=== PATIENT | male | born 1980 | race Caucasian/White ===

== ENCOUNTER 2017-07-31 14:15 | Emergency (ER) | payer OTHER ==
[~2017-07-31] VITALS: Ht 188 cm; Wt 104.5 kg
[2017-07-31] MEDS ORDERED: cloNIDine 0.1 mg tablet PO STA ×2 (14:26→15:30)
[2017-07-31] MEDS ORDERED: oxymetazoline 15 ML nasal spray NS ONE (14:30)
[2017-07-31] MEDS ORDERED: normal saline 1000ML IV soln IVB ONE (14:30)
[2017-07-31] MEDS ORDERED: amLODIPine 5mg tablet PO ONE (15:30)
[2017-07-31 15:48] LABS: BASOPHILS % (AUTO) 0.4 % (0-1); EOSINOPHILS # (AUTO) 0.1 X10'3 (0-0.9); EOSINOPHILS % (AUTO) 1.7 % (0-6); HEMATOCRIT 32.9 % (42.0-52.0); HEMOGLOBIN 11.4 g/dl (14.0-17.9); LYMPHOCYTES % (AUTO) 13.8 % (21-51); MEAN CORPUSCULAR HEMOGLOBIN 29.5 PG (27.0-31.0); MEAN CORPUSCULAR HGB CONC 34.5 % (33.0-36.5); MEAN CORPUSCULAR VOLUME 85.6 FL (78-98); MONOCYTES # (AUTO) 0.6 X10'3 (0-0.9); MONOCYTES % (AUTO) 8.3 % (2-12); NEUTROPHILS # (AUTO) 5.5 X10'3 (1.8-7.7); NEUTROPHILS % (AUTO) 75.8 % (42-75); PLATELET COUNT 272 X10'3 (140-440); RED BLOOD COUNT 3.85 X10'6 (4.70-6.10); RED CELL DISTRIBUTION WIDTH 15.9 % (11.5-14.5); WHITE BLOOD COUNT 7.2 X10'3 (4.5-11.0)
[2017-07-31] MEDS ORDERED: SULF1TAB49 PO (15:53)
[2017-07-31] MEDS ORDERED: AMLO10TA PO (15:54)
[2017-07-31] MEDS ORDERED: LIDOcaine 2% 10ml TOPICAL JELLY (Urojet) MM ONE (16:55)
[2017-07-31 17:18] VITALS: BP 188/119
== END 2017-07-31 17:24 | disposition left against medical advice (07) ==
LOC: ER 14:15
DX: R04.0 Epistaxis (principal); I10 Essential (primary) hypertension; L03.114 Cellulitis of left upper limb; F15.90 Other stimulant use, unspecified, uncomplicated; F11.10 Opioid abuse, uncomplicated; Z60.2 Problems related to living alone; Z59.0 Homelessness; Z56.0 Unemployment, unspecified; Z79.899 Other long term (current) drug therapy
CPT/HCPCS: 30901; 36415; 80320; 85025; 99284; J7030

== ENCOUNTER 2017-08-09 10:35 | Emergency (ER) | payer OTHER ==
[~2017-08-09 10:35] MED LIST: AMLO10TA PO; SULF1TAB49 PO
[2017-08-09 10:49] VITALS: BP 152/112
== END 2017-08-09 10:55 ==
LOC: ER 10:37 → EDBD 10:37 → ER 10:55
DX: I10 Essential (primary) hypertension (principal); Z59.0 Homelessness; F15.90 Other stimulant use, unspecified, uncomplicated; Z60.2 Problems related to living alone; Z56.0 Unemployment, unspecified
CPT/HCPCS: 99283

== ENCOUNTER 2017-08-17 19:08 | Emergency (ER) | payer OTHER ==
[~2017-08-17 19:08] MED LIST changes: -SULF1TAB49 PO
== END 2017-08-17 20:19 | disposition left against medical advice (07) ==
LOC: ER 19:08
DX: M25.579 Pain in unspecified ankle and joints of unspecified foot (principal); Z53.21 Procedure and treatment not carried out due to patient leaving prior to being seen by health care provider

== ENCOUNTER 2017-08-29 04:14 | Emergency (ER) | payer MEDICAID, OTHER ==
[~2017-08-29] VITALS: Ht 188 cm; Wt 104.5 kg
[2017-08-29] MEDS ORDERED: lisinopril 10 MG tablet PO ONE ×2 (04:20→06:35)
[2017-08-29] MEDS ORDERED: LISI10TA4 PO (04:20)
[2017-08-29] MEDS ORDERED: hydrALAZINE 20mg/ml inj. IV ONE (04:25)
[2017-08-29] MEDS ORDERED: CEPH-572 PO (05:53)
[2017-08-29] MEDS ORDERED: SULF1TAB49 PO (05:53)
[2017-08-29] MEDS ORDERED: cephalexin 250mg capsule PO ONE (05:55)
[2017-08-29] MEDS ORDERED: sulfamethoxazole/trimethoprim DS (800/160mg) tablet PO ONE (06:00)
[2017-08-29] MEDS ORDERED: hydrALAZINE 20mg/ml inj. IV PRN (06:00)
[2017-08-29 07:56] VITALS: BP 186/99
[2017-08-29] MEDS ORDERED: sulfamethoxazole/trimethoprim DS (800/160mg) tablet PO SCH (08:00)
== END 2017-08-29 08:02 | disposition home or self-care (01) ==
LOC: ER 04:15
DX: I10 Essential (primary) hypertension (principal); F19.10 Other psychoactive substance abuse, uncomplicated; L03.114 Cellulitis of left upper limb; L03.113 Cellulitis of right upper limb; F11.10 Opioid abuse, uncomplicated; F15.10 Other stimulant abuse, uncomplicated; Z60.2 Problems related to living alone; Z59.0 Homelessness; Z56.0 Unemployment, unspecified; Z79.899 Other long term (current) drug therapy
CPT/HCPCS: 96374; 96376; 99284; J0360; 96375